=== PATIENT | male | born 1945 | race Caucasian/White ===

== ENCOUNTER 2020-06-25 11:33 | Emergency (ER) | payer OTHER ==
[~2020-06-25] VITALS: Ht 172.7 cm; Wt 70.0 kg
[2020-06-25 11:46] VITALS: BP 132/72
[2020-06-25] MEDS ORDERED: PREDNISONE 20MG TABLET PO STA (12:51)
[2020-06-25] MEDS ORDERED: ALBUTEROL 6.7GM HFA INHALER ORI ONE (13:00)
[2020-06-25] MEDS ORDERED: AZITHROMYCIN 500 MG TABLET PO ONE (13:00)
[2020-06-25 16:50] LABS: HEMATOCRIT. 40.1 % (42.0-52.0); HEMOGLOBIN. 13.9 g/dL (14.0-18.0); MEAN CORPUSCULAR HEMOGLOBIN 34.7 pg (28.0-32.0); MEAN PLATELET VOLUME 8.5 fl (7.4-10.4); PLATELET 222 x1000/uL (130-400); RED BLOOD CELL COUNT 4.01 mill/uL (4.7-6.1); RED CELL DISTRIBUTION WIDTH 14.3 % (11.6-14.6)
[2020-06-25 16:56] LABS: CHLORIDE 106 mEq/L (98-107)
[2020-06-25 17:08] LABS: PLATELET ESTIMATE NORMAL
== END 2020-06-25 17:11 | disposition home or self-care (01) ==
LOC: ER 11:33
DX: J44.1 Chronic obstructive pulmonary disease with (acute) exacerbation (principal); J18.9 Pneumonia, unspecified organism; R03.0 Elevated blood-pressure reading, without diagnosis of hypertension; F17.210 Nicotine dependence, cigarettes, uncomplicated; I51.7 Cardiomegaly
CPT/HCPCS: 36415; 71045; 80053; 83880; 84484; 85025; 93005; 94640; 99285; J7512

== ENCOUNTER 2021-01-02 12:49 | Inpatient (IN) | payer MEDICARE, OTHER ==
[~2021-01-02] VITALS: Ht 167.6 cm; Wt 100.5 kg
[~2021-01-02 12:49] MED LIST: AMLO10TA4 PO; APIX5TAB PO; BUPR1TAB33 SL; DILT120T13 PO; LACT10SO30 MT; MOM MT; P20 PO; PRED10TA MT
[2021-01-02] MEDS ORDERED: IPRATROPIUM BROMIDE (0.02%) 0.5MG/2.5ML NEB HHN STA (13:16)
[2021-01-02] MEDS ORDERED: METHYLPREDNISOLONE SOD SUCC 125 MG/2 ML VIAL IV STA (13:16)
[2021-01-02] MEDS ORDERED: ALBUTEROL (0.083%) 2.5MG/3ML NEB HHN STA (13:16)
[2021-01-02] MEDS ORDERED: AZITHROMYCIN 500 MG in DEXT 5% WATER 250 ML IV ONE (13:30)
[2021-01-02] MEDS ORDERED: ALBUTEROL (0.5%) 2.5MG/0.5ML NEB HHN ONE (13:43)
[2021-01-02] MEDS ORDERED: IPRATROPIUM BROMIDE (0.02%) 0.5MG/2.5ML NEB ONE (13:44)
[2021-01-02] MEDS ORDERED: ALBUTEROL (0.083%) 2.5MG/3ML NEB ONE (13:44)
[2021-01-02 15:03] LABS: CHLORIDE 104 mEq/L (98-107)
[2021-01-02 15:06] LABS: BASOPHILS % 0.7 % (0.0-2.0); EOSINOPHILS % 0.9 % (0.0-5.0); HEMATOCRIT. 38.5 % (42.0-52.0); LYMPHOCYTES % 14.8 % (20.0-50.0); MEAN CORPUSCULAR HEMOGLOBIN 32.6 pg (28.0-32.0); MEAN CORPUSCULAR VOLUME 96.7 fL (80.0-94.0); MEAN PLATELET VOLUME 8.2 fl (7.4-10.4); MONOCYTES % 7.8 % (2.0-8.0); NEUTROPHILS % 75.8 % (40.0-76.0); PLATELET 224 x1000/uL (130-400); RED BLOOD CELL COUNT 3.98 mill/uL (4.7-6.1); RED CELL DISTRIBUTION WIDTH 13.7 % (11.6-14.6)
[2021-01-02] MEDS ORDERED: HYDRALAZINE 20MG/ML VIAL IV PRN (18:45)
[2021-01-02] MEDS ORDERED: MAGNESIUM/ALUMINUM HYDROXIDE/SIMETHICONE 30ML UDC PO PRN (18:45)
[2021-01-02] MEDS ORDERED: HYDROCODONE/ACETAMINOPHEN 5/325MG TABLET PO PRN (18:45)
[2021-01-02] MEDS ORDERED: GUAIFENESIN 200MG/10ML SUGAR FREE UDC PO PRN (18:45)
[2021-01-02] MEDS ORDERED: CLONIDINE 0.1MG TABLET PO PRN (18:45)
[2021-01-02] MEDS ORDERED: ONDANSETRON HCL 4MG/2ML INJ IV PRN (18:45)
[2021-01-02] MEDS ORDERED: DOCUSATE SODIUM 100MG CAPSULE PO PRN (18:45)
[2021-01-02] MEDS: METHYLPREDNISOLONE SOD SUCC 40 MG/ML VIAL IV SCH (19:42)
[2021-01-02] MEDS ORDERED: ENOXAPARIN 40MG/0.4ML SYR SUBCUT SCH (21:00)
[2021-01-02] MEDS: LORAZEPAM 2MG/ML CPJ IV PRN (21:39)
[2021-01-02] MEDS: DIPHENHYDRAMINE 50MG/ML VIAL IV PRN (21:39)
[2021-01-02] MEDS ORDERED: SODIUM CHLORIDE 0.9% INJ 3ML FLUSH IVF SCH (22:00)
[2021-01-03] MEDS: METHYLPREDNISOLONE SOD SUCC 40 MG/ML VIAL IV SCH ×4 (02:33→17:48)
[2021-01-03 02:51] VITALS: BP 149/80
[2021-01-03] MEDS ORDERED: ATOR40TA70 PO (03:59)
[2021-01-03] MEDS ORDERED: MIRT-91 MT (04:01)
[2021-01-03] MEDS ORDERED: TRAZ-251 PO (04:03)
[2021-01-03] MEDS ORDERED: BUPR1TAB33 SL (04:07)
[2021-01-03] MEDS: LORAZEPAM 2MG/ML CPJ IV PRN ×3 (04:15→23:46)
[2021-01-03] MEDS: DIPHENHYDRAMINE 50MG/ML VIAL IV PRN ×2 (04:15→23:46)
[2021-01-03 06:00] VITALS: BP 129/82
[2021-01-03 06:23] LABS: CHLORIDE 104 mEq/L (98-107)
[2021-01-03 06:24] LABS: HEMATOCRIT. 38.7 % (42.0-52.0); MEAN CORPUSCULAR HEMOGLOBIN 32.7 pg (28.0-32.0); MEAN CORPUSCULAR VOLUME 97.6 fL (80.0-94.0); MEAN PLATELET VOLUME 8.4 fl (7.4-10.4); PLATELET 232 x1000/uL (130-400); RED BLOOD CELL COUNT 3.96 mill/uL (4.7-6.1); RED CELL DISTRIBUTION WIDTH 13.9 % (11.6-14.6)
[2021-01-03 06:33] LABS: CREATINE KINASE 144 IU/L (39-308)
[2021-01-03 06:39] LABS: CREATINE KINASE MB FRACTION 2.4 ng/mL (0.5-3.6)
[2021-01-03 08:00] VITALS: BP 123/60
[2021-01-03 12:00] VITALS: BP 138/76
[2021-01-03] MEDS: ENOXAPARIN 100MG/ML SYR SUBCUT SCH ×2 (12:02→21:45)
[2021-01-03 14:23] LABS: PLATELET ESTIMATE NORMAL
[2021-01-03] MEDS: IPRATROPIUM/ALBUTEROL 0.5-3(2.5)MG/3ML NEB HHN PRN (17:11)
[2021-01-03] MEDS: FUROSEMIDE 40MG/4ML VIAL IVP SCH (17:48)
[2021-01-03] MEDS ORDERED: FUROSEMIDE 40MG/4ML VIAL IVP SCH (18:00)
[2021-01-03 20:00] VITALS: BP 146/65
[2021-01-03 22:00] VITALS: BP 146/65
[2021-01-03] MEDS: ACETAMINOPHEN 325MG TABLET PO PRN (23:46)
[2021-01-04] VITALS: BP 132/68
[2021-01-04] MEDS: METHYLPREDNISOLONE SOD SUCC 40 MG/ML VIAL IV SCH ×4 (00:06→18:45)
[2021-01-04 04:00] VITALS: BP 155/76
[2021-01-04] MEDS: FUROSEMIDE 40MG/4ML VIAL IVP SCH ×2 (05:49→18:45)
[2021-01-04 08:00] VITALS: BP 133/55
[2021-01-04] MEDS: ENOXAPARIN 100MG/ML SYR SUBCUT SCH ×2 (09:00→19:48)
[2021-01-04 10:18] LABS: HEMATOCRIT. 34.2 % (42.0-52.0); HEMOGLOBIN. 11.5 g/dL (14.0-18.0); MEAN CORPUSCULAR HEMOGLOBIN 32.9 pg (28.0-32.0); MEAN CORPUSCULAR VOLUME 97.8 fL (80.0-94.0); MEAN PLATELET VOLUME 8.4 fl (7.4-10.4); PLATELET 221 x1000/uL (130-400); RED BLOOD CELL COUNT 3.49 mill/uL (4.7-6.1); RED CELL DISTRIBUTION WIDTH 13.7 % (11.6-14.6)
[2021-01-04 12:00] VITALS: BP 113/58
[2021-01-04 12:54] LABS: PLATELET ESTIMATE NORMAL
[2021-01-04] MEDS: MORPHINE SULFATE 2 MG/ML CPJ (NOT FOR IM USE) IV PRN ×2 (14:17→22:16)
[2021-01-04 16:00] VITALS: BP 125/55
[2021-01-04 20:00] VITALS: BP 136/79
[2021-01-04] MEDS: IPRATROPIUM/ALBUTEROL 0.5-3(2.5)MG/3ML NEB HHN PRN (20:18)
[2021-01-04] MEDS ORDERED: TRAZODONE HCL 50MG TABLET PO SCH (21:00)
[2021-01-04] MEDS ORDERED: MIRTAZAPINE 15MG TABLET PO SCH (21:00)
[2021-01-05] VITALS: BP 148/67
[2021-01-05] MEDS: METHYLPREDNISOLONE SOD SUCC 40 MG/ML VIAL IV SCH ×3 (00:02→12:17)
[2021-01-05 04:00] VITALS: BP 115/58
[2021-01-05] MEDS: FUROSEMIDE 40MG/4ML VIAL IVP SCH (05:00)
[2021-01-05 08:00] VITALS: BP 105/42
[2021-01-05] MEDS: ENOXAPARIN 100MG/ML SYR SUBCUT SCH (09:00)
[2021-01-05] MEDS: LORAZEPAM 2MG/ML CPJ IV PRN (09:32)
[2021-01-05] MEDS: ACETAMINOPHEN 325MG TABLET PO PRN (09:33)
[2021-01-05] MEDS ORDERED: POLYETHYLENE GLYCOL 3350 (17GM) 1 DOSE PACK PO SCH (11:45)
[2021-01-05 12:00] VITALS: BP 123/58
[2021-01-05 12:57] VITALS: BP 123/58
== END 2021-01-05 15:07 | disposition home health service (06) | DRG 291 ==
LOC: ER 13:06 → MICUSO 16:15 → EDBEDREQ 16:22 → 8WST 23:46
PROVIDERS: ADMIT Internal Medicine; ATTEND Internal Medicine
DX: I11.0 Hypertensive heart disease with heart failure (principal); J96.00 Acute respiratory failure, unspecified whether with hypoxia or hypercapnia; J44.1 Chronic obstructive pulmonary disease with (acute) exacerbation; J98.11 Atelectasis; I48.92 Unspecified atrial flutter; I50.33 Acute on chronic diastolic (congestive) heart failure; E66.9 Obesity, unspecified; E78.5 Hyperlipidemia, unspecified; F17.210 Nicotine dependence, cigarettes, uncomplicated; F14.10 Cocaine abuse, uncomplicated; W18.39XA Other fall on same level, initial encounter; I48.0 Paroxysmal atrial fibrillation; I49.3 Ventricular premature depolarization; Z79.899 Other long term (current) drug therapy; Z79.01 Long term (current) use of anticoagulants; Z90.49 Acquired absence of other specified parts of digestive tract; Z68.35 Body mass index [BMI] 35.0-35.9, adult; Y93.89 Activity, other specified; Y92.89 Other specified places as the place of occurrence of the external cause; Y99.8 Other external cause status; S30.0XXA Contusion of lower back and pelvis, initial encounter
CPT/HCPCS: 36415; 71045; 80048; 80053; 82550; 82553; 83880; 84484; 85025; 93005; 93306; 93970; 94640; 96365; 99285; J0360; J0456; J1200; J1650; J1940; J2060; J2270; J2920; J2930; J7060